=== PATIENT | male | born 2000 | race Hispanic/Latino ===

== ENCOUNTER 2024-07-18 03:19 | Emergency (ER) | payer BC ==
[~2024-07-18] VITALS: Ht 172.7 cm; Wt 140.0 kg
[2024-07-18 03:45] VITALS: BP 133/74
[2024-07-18] MEDS ORDERED: NEOMYCIN-BACITRACIN-POLYMYXIN 0.5 GM/PAK PAK TOP ONE (03:50)
[2024-07-18] MEDS ORDERED: POVIDONE IODINE 0.5 OZ/BTL TOP ONE (03:50)
[2024-07-18 04:00] VITALS: BP 126/82
[2024-07-18 04:15] VITALS: BP 119/71
[2024-07-18 04:30] VITALS: BP 133/74
[2024-07-18] MEDS ORDERED: IBUPROFEN 600 MG/TAB PO ONE (04:40)
[2024-07-18 05:00] VITALS: BP 122/67
[2024-07-18 05:15] VITALS: BP 144/76
== END 2024-07-18 05:44 | disposition home or self-care (01) | DRG 605 ==
LOC: ED 03:19
PROC: 0HQ1XZZ Repair Face Skin, External Approach (ICD-10-PCS; principal; 2024-07-18)
DX: S01.81XA Laceration without foreign body of other part of head, initial encounter (principal); S91.311A Laceration without foreign body, right foot, initial encounter; E11.9 Type 2 diabetes mellitus without complications; W25.XXXA Contact with sharp glass, initial encounter; Y92.009 Unspecified place in unspecified non-institutional (private) residence as the place of occurrence of the external cause; W22.09XA Striking against other stationary object, initial encounter; Z79.84 Long term (current) use of oral hypoglycemic drugs